=== PATIENT | male | born 1940 | race Caucasian/White ===

== ENCOUNTER → 2017-09-02 | Outpatient (CLI) | payer MEDICARE ==
[~2017-09-02] MED LIST: COZA50TA PO; PROS5TAB2 PO; TAMS0.4C67 PO
[2017-09-02 13:56] LABS: KAPPA LAMBDA RATIO 2.93 (1.57-3.93)
== END ==
LOC: PLAB 11:10
DX: D69.6 Thrombocytopenia, unspecified (principal)
CPT/HCPCS: 36415; 83883